=== PATIENT | male | born 1980 | race Caucasian/White ===

== ENCOUNTER 2017-02-26 09:10 | Emergency (ER) | payer OTHER ==
--- NOTE | 2017-02-26 09:20 | EDPHY ---
H & P Time Seen by Provider: 02/26/17 09:19 HPI/ROS: Chief complaint. Dizzy, abdominal pain HPI. 36-year-old male with history of vertigo presents with acute dizziness that began this morning. He got up quickly out of bed and became very dizzy. He noticed said his symptoms were much better with his eyes closed and worse with eyes open looking around and movement of his head as well as standing position. He has a movement sensation but does not feel like he is going to pass out. He does have a history of vertigo and this is similar to previous symptoms. He has nausea without vomiting. He has had a recent upper respiratory infection with congestion. He also thinks that he has may be somewhat dehydrated. No change in hearing or ear ringing. He denies chest discomfort or trouble breathing. He has a history of ulcerative colitis and over the weekend he had some cramping and some diarrhea though it seems to be improving. He had no dizziness with his abdominal pain ROS Constitutional. no fever/chills, no weakness Eyes. no problems with vision ENT. no sore throat, no nasal drainage Cardiovascular. no chest pain Respiratory. no shortness of breath, no cough Abdominal. Abdominal cramping and diarrhea that seems to be improving . no problems urinating MS. no calf pain/swelling, no neck/back pain, no joint pain Skin. no rash Lymph. no swollen glands Neuro. Dizziness Past Medical/Surgical History: Vertigo, ulcerative colitis Social History: , nonsmoker, no alcohol Physical Exam: General Appearance: Alert well-developed male mild distress vital signs are stable Eyes: Pupils equal and round no pallor or injection. No nystagmus ENT, Mouth: Mucous membranes are moist. Respiratory: There are no retractions, lungs are clear to auscultation. Cardiovascular: Regular rate and rhythm. Gastrointestinal: Abdomen is soft and mildly tender, no masses, bowel sounds normal. Neurological: Awake and alert, sensory and motor exams grossly normal. Skin: Warm and dry, no rashes. Musculoskeletal: Neck is supple nontender. Extremities symmetrical, full range of motion. Psychiatric: Patient is oriented X 3, there is no agitation. Constitutional: Initial Vital Signs Temperature (C) 36.5 C 02/26/17 09:16 Heart Rate 84 02/26/17 09:16 Respiratory Rate 18 02/26/17 09:16 Blood Pressure 117/70 02/26/17 09:16 O2 Sat (%) 96 02/26/17 09:16 O2 Delivery Mode Room Air O2 (L/minute) 2 Allergies/Adverse Reactions: No Known Allergies Allergy (Unverified 02/26/17 09:16) Home Medications: Medication Instructions Recorded Meclizine HCl 25 mg PO Q6-8PRN PRN #10 tablet 02/26/17 Medical Decision Making Procedures: IV normal saline. Zofran IV. Meclizine by mouth ED Course/Re-evaluation: Re-evaluation 11:15 a.m.. Patient is still dizzy upon sitting. He will be given some IV Ativan Re-evaluation 12:20 p.m.. He is feeling much better. He is now sitting up and walking around without symptoms. He is ambulatory with minimal symptoms . Patient, his , and I discussed laboratory evaluation, treatment plan including criteria for return importance of follow-up and further evaluation. They expressed understanding and agreement Differential Diagnosis: This appears to be peripheral vertigo. I considered electrolyte abnormalities, anemia, infection, CVA - Data Points Laboratory Results: Laboratory Results 02/26/17 09:40 02/26/17 09:40 02/26/17 02/26/17 09:40 09:40 WBC 7.31 10^3/uL 10^3/uL (3.80-9.50) RBC 5.05 10^6/uL 10^6/uL (4.40-6.38) Hgb 16.2 g/dL g/dL (13.7-17.5) Hct 47.8 % % (40.0-51.0) MCV 94.7 fL fL (81.5-99.8) MCH 32.1 pg pg (27.9-34.1) MCHC 33.9 g/dL g/dL (32.4-36.7) RDW 12.9 % % (11.5-15.2) Plt Count 319 10^3/uL 10^3/uL (150-400) MPV 9.7 fL fL (8.7-11.7) Neut % (Auto) 62.8 % % (39.3-74.2) Lymph % (Auto) 22.8 % % (15.0-45.0) [place] % (Auto) 9.2 % % (4.5-13.0) Eos % (Auto) 4.1 % % (0.6-7.6) Baso % (Auto) 0.8 % % (0.3-1.7) Nucleat RBC Rel Count 0.0 % % (0.0-0.2) Absolute Neuts (auto) 4.59 10^3/uL 10^3/uL (1.70-6.50) Absolute Lymphs (auto) 1.67 10^3/uL 10^3/uL (1.00-3.00) Absolute Monos (auto) 0.67 10^3/uL 10^3/uL (0.30-0.80) Absolute Eos (auto) 0.30 10^3/uL 10^3/uL (0.03-0.40) Absolute Basos (auto) 0.06 10^3/uL 10^3/uL (0.02-0.10) Absolute Nucleated RBC 0.00 10^3/uL 10^3/uL (0-0.01) Immature Gran % 0.3 % % (0.0-1.1) Immature Gran # 0.02 10^3/uL 10^3/uL (0.00-0.10) Sodium 139 mEq/L mEq/L (134-144) Potassium 3.9 mEq/L mEq/L (3.5-5.2) Chloride 105 mEq/L mEq/L (97-110) Carbon Dioxide 24 mEq/l mEq/l (22-31) Anion Gap 10 mEq/L mEq/L (8-16) BUN 10 mg/dL mg/dL (7-23) Creatinine 0.7 mg/dL mg/dL (0.7-1.3) Estimated GFR > 60 Glucose 99 mg/dL mg/dL (70-100) Calcium 8.6 mg/dL mg/dL (8.5-10.4) Medications Given: Discontinued Medications Sodium Chloride (Ns) 1,000 mls @ 0 mls/hr IV EDNOW ONE; Wide Open PRN Reason: Protocol Stop: 02/26/17 09:30 Last Admin: 02/26/17 09:36 Dose: 1,000 mls Lorazepam (Ativan Injection) 1 mg IVP EDNOW ONE Stop: 02/26/17 11:21 Last Admin: 02/26/17 11:33 Dose: 1 mg Meclizine HCl (Meclizine Hcl) 25 mg PO EDNOW ONE Stop: 02/26/17 09:31 Last Admin: 02/26/17 09:37 Dose: 25 mg Ondansetron HCl (Zofran) 4 mg IVP EDNOW ONE Stop: 02/26/17 09:30 Last Admin: 02/26/17 09:37 Dose: 4 mg Departure - Departure Disposition: Home, Routine, Self-Care Clinical Impression: Vertigo Condition: Good Instructions: Vertigo (ED) Additional Instructions: Easy activity. Drink plenty of fluids and stay hydrated. Meclizine every 6-8 hours as needed for dizziness. Return for worsening symptoms. Recheck in 2 days if not improved Referrals: [facility] [Other] - As per Instructions Keila Orlando DO [Doctor of Osteopathy] - 2-3 days, if not improved Stand Alone Forms: Work Excuse Prescriptions: Meclizine HCl 25 mg PO Q6-8PRN PRN #10 tablet PRN Reason: Dizziness
[2017-02-26 09:22] VITALS: RESP 18; TEMP 97.7
[2017-02-26] MEDS ORDERED: NS 1,000 ML IV ONE (09:29)
[2017-02-26] MEDS ORDERED: ONDANSETRON 4 MG/2 ML VIAL IVP ONE (09:29)
[2017-02-26] MEDS ORDERED: MECLIZINE HCL 25 MG TAB PO ONE (09:30)
[2017-02-26 09:46] LABS: % IMMATURE GRANULYOCYTES 0.3 % (0.0-1.1); ABSOLUTE IMMATURE GRANULOCYTES 0.02 10^3/uL (0.00-0.10); ADD DIFF? NO; ADD MORPH? NO; ADD SCAN? NO; ATYPICAL LYMPHOCYTE FLAG 0 (0-99); FRAGMENT RBC FLAG 0 (0-99); HEMATOCRIT 47.8 % (40.0-51.0); HEMOGLOBIN 16.2 g/dL (13.7-17.5); LEFT SHIFT FLG 0 (0-99); LIPEMIA HEMOLYSIS FLAG 90 (0-99); MEAN CELL HEMOGLOBIN 32.1 pg (27.9-34.1); MEAN CELL HEMOGLOBIN CONCENTR. 33.9 g/dL (32.4-36.7); MEAN CELL VOLUME 94.7 fL (81.5-99.8); MEAN PLATELET VOLUME 9.7 fL (8.7-11.7); PLATELET CLUMPS FLAG 0 (0-99); PLATELET COUNT 319 10^3/uL (150-400); RED BLOOD CELL COUNT 5.05 10^6/uL (4.40-6.38); RED CELL DISTRIBUTION WIDTH 12.9 % (11.5-15.2)
[2017-02-26 10:05] LABS: ANION GAP 10 mEq/L (8-16); CARBON DIOXIDE 24 mEq/l (22-31); CHLORIDE 105 mEq/L (97-110); POTASSIUM 3.9 mEq/L (3.5-5.2); SODIUM 139 mEq/L (134-144)
[2017-02-26 10:27] LABS: CALCIUM 8.6 mg/dL (8.5-10.4); CREATININE 0.7 mg/dL (0.7-1.3); GLOMERULAR FILTRATION RATE > 60; GLUCOSE 99 mg/dL (70-100)
[2017-02-26] MEDS ORDERED: LORazepam 2 MG/ML INJ IVP ONE (11:20)
[2017-02-26 14:33] VITALS: BP 130/83; PULSE 77; O2SAT 98
== END 2017-02-26 12:50 | disposition home or self-care (01) ==
LOC: CED 09:10
DX: R42 Dizziness and giddiness (principal); E86.9 Volume depletion, unspecified
CPT/HCPCS: 80048-PO; 85025-PO; 96374; J2060; J2405